=== PATIENT | male | born 1985 | race Two or more races ===

== ENCOUNTER → 2018-11-13 | Emergency (ER) | payer MEDICAID ==
[~2018-11-13] VITALS: Ht 165.1 cm; Wt 72.6 kg
[~2018-11-13] MED LIST: BENADRYL25 MG ORAL; PREDNISONE20 MG ORAL
[2018-11-13 19:55] VITALS: BP 123/71
--- NOTE | 2018-11-13 19:55 | NUR ---
ED Nurse Note: Pt arrived ED from home. C/o skin rashes on back and neck area today. Pt is A/O X4. VSS. Waing for orders.
[2018-11-13 20:27] VITALS: BP 124/73
--- NOTE | 2018-11-13 20:27 | NUR ---
ER DISCHARGE NOTE: Patient is cleared to be discharged per Dr. Lemus. Pt is aox4, on room air, with stable vital signs. pt was given dc and prescription instructions, pt was able to verbalize understanding, pt id band removed . Pt is able to ambulate with steady gait. Pt took all belongings.
--- NOTE | 2018-11-13 21:36 | Emergency Room Report ---
History of Present Illness General Chief Complaint: Skin Rash/Abscess Source: Patient Present Illness HPI Patient is a 33-year-old male who presented after skin rash. Patient was noted to have developed a rash after ingesting his 's Diflucan. Patient denied any fever. He had a recent upper respiratory infection. Patient reports having a generalized itchiness to his trunk. Patient had taken Benadryl with minimal change.Patient had onset of rash over the past 2 days. Allergies: Coded Allergies: No Known Allergies (Unverified , 11/13/18) Patient History Past Medical History: see triage record Reviewed Nursing Documentation: PMH: Agreed; PSxH: Agreed Nursing Documentation-PMH Past Medical History: No Stated History Review of Systems All Other Systems: negative except mentioned in HPI Physical Exam Vital Signs Date Time Temp Pulse Resp B/P (MAP) Pulse Ox O2 Delivery O2 Flow Rate FiO2 11/13/18 19:49 98.2 76 16 126/74 96 Room Air General Appearance: well appearing, no apparent distress, alert, GCS 15 Head: normocephalic, atraumatic ENT: hearing grossly normal, normal voice Neck: full range of motion, supple Respiratory: no respiratory distress, speaking full sentences Musculoskeletal: no calf tenderness Neurologic: normal inspection, alert, oriented x3, normal gait Psychiatric: mood/affect normal Skin: other - patchy rash to trunk without urticaria Medical Decision Making Diagnostic Impression: Primary Impression: Skin rash ER Course . Patient presented for itchy skin rash. Differential diagnosis include was not limited to viral exanthem, pityriasis rosea, scabies, among others. Patient has a benign exam and does not appear to require any further imaging or laboratory testing at this time Patient was given oral steroids as well as prescription for Benadryl. He is advised to follow-up with his primary care physician for recheck. He is to return if any worsening of condition. Last Vital Signs Date Time Temp Pulse Resp B/P (MAP) Pulse Ox O2 Delivery O2 Flow Rate FiO2 11/13/18 20:27 98.2 74 16 124/73 96 Room Air Status: improved Disposition: HOME, SELF-CARE Condition: Stable Scripts Diphenhydramine Hcl* (BENADRYL*) 25 Mg Capsule 25 MG ORAL Q6H PRN for Itching, #30 CAP Prov: Monty Lemus MD 11/13/18 Prednisone* (PREDNISONE*) 20 Mg Tablet 40 MG ORAL DAILY, #10 TAB Prov: Monty Lemus MD 11/13/18 Referrals: NON PHYSICIAN (PCP) Patient Instructions: Monty Shelton MD Nov 13, 2018 21:36
== END | disposition home or self-care (01) ==
LOC: EMR 20:23
DX: R21 Rash and other nonspecific skin eruption (principal)
CPT/HCPCS: 99282; J7512

== ENCOUNTER 2019-07-30 19:58 | Emergency (ER) | payer MEDICAID ==
[~2019-07-30] VITALS: Ht 165.1 cm; Wt 65.8 kg
--- NOTE | 2019-07-30 20:14 | NUR ---
ED Nurse Note: pt arrived to ed with complaitns of " 2 pimples" on top left forehead and posterior left nape. pt states pimples have been present for x 2 weeks, no drainage/pus.
[2019-07-30 20:15] VITALS: BP 125/82
--- NOTE | 2019-07-30 20:23 | Emergency Room Report ---
History of Present Illness General Chief Complaint: Skin Rash/Abscess Source: Patient Present Illness HPI 34-year-old male with no segment past medical history here complaining of 1 week of a painful cyst on the left upper forehead around his hairline. Patient reports that he shaved the area and started feeling the pain immediately. Has been trying to pop the affected site. Complains of headache now at the site of the affected area. Denies dizziness, pain radiation, nausea vomiting. Also reports a mobile mass on the left posterior neck times several weeks. With minimal pain and no tingling numbness. Denies fall or injury to the head or neck. Has not taken medication for symptom relief. Denies chest pain, shortness of breath, palpitation, and other associated symptoms. Is up-to-date with tetanus shot Allergies: Coded Allergies: No Known Allergies (Unverified , 11/13/18) Patient History Past Medical History: see triage record Past Surgical History: unable to obtain Pertinent Family History: none Immunizations: UTD Reviewed Nursing Documentation: PMH: Agreed; PSxH: Agreed Nursing Documentation-PMH Past Medical History: No Stated History Review of Systems All Other Systems: negative except mentioned in HPI Physical Exam Vital Signs Date Time Temp Pulse Resp B/P (MAP) Pulse Ox O2 Delivery O2 Flow Rate FiO2 07/30/19 20:09 98.4 68 19 125/82 (96) 96 Room Air Sp02 EP Interpretation: reviewed, normal General Appearance: no apparent distress, alert, GCS 15, non-toxic Head: normocephalic, atraumatic Eyes: bilateral eye normal inspection, bilateral eye PERRL ENT: hearing grossly normal, normal pharynx, no angioedema, normal voice Neck: full range of motion, supple, supple/symm/no masses Respiratory: chest non-tender, lungs clear, normal breath sounds, no rhonchi, no wheezing, speaking full sentences Cardiovascular #1: regular rate, rhythm, no edema, no murmur, normal capillary refill Gastrointestinal: normal bowel sounds, non tender, soft, no mass, non-distended , no guarding, no rebound Rectal: deferred Genitourinary: no CVA tenderness Neurologic: alert, oriented x3, responsive, motor strength/tone normal, sensory intact, speech normal Psychiatric: normal inspection, judgement/insight normal, memory normal Skin: other - Folliculitis of left upper forehead, lipoma left posterior neck Lymphatic: normal inspection, no adenopathy Medical Decision Making PA Attestation All diagnoses and treatment plans were reviewed and discussed with my supervising physician Dr. Dunlap Diagnostic Impression: Primary Impression: Folliculitis Additional Impression: Lipoma ER Course 34-year-old male with no segment past medical history here complaining of 1 week of a painful cyst on the left upper forehead around his hairline. Patient reports that he shaved the area and started feeling the pain immediately. Has been trying to pop the affected site. Complains of headache now at the site of the affected area. Denies dizziness, pain radiation, nausea vomiting. Also reports a mobile mass on the left posterior neck times several weeks. With minimal pain and no tingling numbness. Denies fall or injury to the head or neck. Has not taken medication for symptom relief. Denies chest pain, shortness of breath, palpitation, and other associated symptoms. Is up-to-date with tetanus shot Ddx considered but are not limited to : Folliculitis, cyst, abscess, lipoma Vital signs: are WNL, pt. is afebrile H&PE are most consistent with: Folliculitis, lipoma ORDERS: Keflex, ibuprofen ED INTERVENTIONS: None required at this time. DISCHARGE: At this time pt. is stable for d/c to home. Will provide printed patient care instructions, and any necessary prescriptions. Care plan and follow up instructions have been discussed with the patient prior to discharge. I advised the patient to follow-up with primary care provider for possible scanning of the soft tissue of the possible lipoma posterior neck however even if it is for the colitis just like his left upper forehead the antibiotic will take care of it. If worsening symptoms return to emergency room Last Vital Signs Date Time Temp Pulse Resp B/P (MAP) Pulse Ox O2 Delivery O2 Flow Rate FiO2 07/30/19 20:15 98.4 68 19 125/82 96 Room Air Disposition: HOME, SELF-CARE Condition: Stable Scripts Cephalexin* (KEFLEX*) 500 Mg Capsule 500 MG ORAL EVERY 6 HOURS for 7 Days, #28 CAP Prov: Alexa Hdez 07/30/19 Ibuprofen* (MOTRIN*) 600 Mg Tablet 600 MG ORAL Q6H PRN for For Pain, #30 TAB Prov: Alexa Hdez 07/30/19 Patient Instructions: Folliculitis, Lipoma Additional Instructions: Take medication as directed, follow-up with your primary care provider for removal of the light, you need to be referred to a specialist. If worsening symptoms return to the emergency room Alexa Hdez Jul 30, 2019 20:23
[2019-07-30] MEDS ORDERED: IBUPROFEN600 MG ORAL (20:25)
[2019-07-30] MEDS ORDERED: CEPHALEXIN500 MG ORAL (20:25)
[2019-07-30 20:30] VITALS: BP 121/80
--- NOTE | 2019-07-30 20:31 | NUR ---
ER DISCHARGE NOTE: Patient is cleared to be discharged per ERMD, pt is aox4, on room air, with stable vital signs. pt was given dc and prescription instructions, pt was able to verbalize understanding, pt id band removed. pt is able to ambulate with steady gait. pt took all belongings.
== END 2019-07-30 20:30 | disposition home or self-care (01) ==
LOC: EMR 20:25
DX: L73.9 Follicular disorder, unspecified (principal); D17.0 Benign lipomatous neoplasm of skin and subcutaneous tissue of head, face and neck
CPT/HCPCS: 99282